=== PATIENT | male | born 1975 | race Caucasian/White ===

== ENCOUNTER 2023-07-23 08:30 | Outpatient (CLI) | payer OTHER ==
--- NOTE | 2023-07-23 16:22 | XRAY Report ---
PROCEDURE: Cervical Spine 2-3V INDICATIONS: THORACIC REGION BACK PAIN TECHNIQUE: 3 view(s) of the cervical spine were acquired. COMPARISON: Cervical spine radiographs also performed today. FINDINGS: Bones: No fractures or dislocations to the C7 level. The lateral masses of C1 appear intact on the odontoid view. Small vertebral body osteophytes. No suspicious bony lesions. Soft tissues: No prevertebral soft tissue swelling. IMPRESSION: Mild degenerative change in the cervical spine. Reviewed by: Javon Means MD on 07/23/2023 4:20 PM PST Approved by: Javon Means MD on 07/23/2023 4:20 PM PST Station ID: [id number]
--- NOTE | 2023-07-23 16:23 | XRAY Report ---
PROCEDURE: Thoracic Spine 3V INDICATIONS: THORACIC REGION BACK PAIN TECHNIQUE: 3 views of the thoracic spine were acquired. COMPARISON: Same day cervical spine radiograph. FINDINGS: Bones: No fractures or dislocations. No suspicious bony lesions. Small vertebral body osteophytes. 12 pairs of ribs are noted, and appear intact where visualized. Soft tissues: No paravertebral stripe thickening. IMPRESSION: Mild degenerative change in the thoracic spine. Reviewed by: Javon Means MD on 07/23/2023 4:21 PM PST Approved by: Javon Means MD on 07/23/2023 4:21 PM PST Station ID: [id number]
== END 2023-07-23 08:45 | disposition home or self-care (01) ==
LOC: DI.N 08:30
PROVIDERS: ATTEND Physician Assistant Medical
DX: M47.814 Spondylosis without myelopathy or radiculopathy, thoracic region (principal); M47.812 Spondylosis without myelopathy or radiculopathy, cervical region

== ENCOUNTER 2023-10-10 08:00 | Outpatient (CLI) | payer OTHER ==
[2023-10-10 18:07] LABS: FECAL OCCULT BLOOD (FIT) POSITIVE (NEGATIVE)
== END 2023-10-10 23:59 | disposition home or self-care (01) ==
LOC: LAB.N 08:00
PROVIDERS: ATTEND Family Medicine
DX: Z12.11 Encounter for screening for malignant neoplasm of colon (principal)
CPT/HCPCS: 82274

== ENCOUNTER 2023-12-27 07:09 | Day surgery (SDC) | payer OTHER ==
[2023-12-27] MEDS: LACTATED RINGERS 1,000 ML IV ONE (07:23)
[2023-12-27 07:43] VITALS: O2SAT 99
[2023-12-27] MEDS ORDERED: LIDOCAINE-MPF 2% 5 ML VIAL ONE (07:49)
[2023-12-27] MEDS ORDERED: PROPOFOL 500 MG/50 ML 500 MG/50 ML VIAL ONE (07:49)
--- NOTE | 2023-12-27 08:24 | ANESTHESIA ---
Pre-Anesthesia VS, & Labs - Diagnosis screening - Procedure colonoscopy Vital Signs: Temp Pulse Resp BP Pulse Ox O2 Flow Rate 36.5 C 86 14 137/91 H 99 12/27/23 07:31 12/27/23 07:31 12/27/23 07:31 12/27/23 07:31 12/27/23 07:31 Height: 5 ft 9 in Weight (kg): 75.2 kg Body Mass Index: 24.5 BMI Classification: Normal - NPO Last Fluid Intake: o430 Last Food Intake: >8hr Home Medications and Allergies Home Medications: Ambulatory Orders Gabapentin [Neurontin] 100 mg PO 12/26/23 Meloxicam 15 mg PO 12/26/23 methocarbamoL [Methocarbamol] 500 mg PO 12/26/23 Gabapentin [Neurontin] 100 mg PO 12/26/23 Meloxicam 15 mg PO 12/26/23 methocarbamoL [Methocarbamol] 500 mg PO 12/26/23 Allergies/Adverse Reactions: Allergies Allergy/AdvReac Type Severity Reaction Status Date / Time No Known Drug Allergies Allergy Verified 12/26/23 12:43 Anes History & Medical History - Anesthetic History Anesthesia Complications: reports: No previous complications - Medical History Cardiovascular: reports: None Pulmonary: reports: None Gastrointestinal: reports: None Urinary: reports: None Musculoskeletal: reports: Chronic back pain Endocrine/Autoimmune: reports: None Skin: reports: None Smoking Status: Current every day smoker (20 years) Results - EKG Results EKG Comparison: Reviewed EKG Exam General: Alert, Oriented x3 Dental: WNL Mouth Openin Fingerbreadth Neck Mobility: Normal Mallampati classification: II Thyromental Distance: 4-6 cm Plan Anesthesia Type: Total IV Consent for Procedure(s) Verified and Reviewed: Yes Code Status: Attempt Resuscitation ASA classification: 2-Mild systemic disease Is this case an emergency?: No
--- NOTE | 2023-12-27 08:25 | HISTORY & PHYSICAL EXAMINATION ---
Chief Complaint - Chief Complaint Chief Complaint: here for colonoscopy History of Present Illness - History Obtained From Records Reviewed: yes History obtained from: pt Exam Limitations: none - History of Present Illness HPI Comment/Other: positive fit. no gi symptoms. fhx colon ca in aunt and grandfather. no first degree relatives History - Past Medical History Cardiovascular: reports: None Respiratory: reports: None Endocrine/Autoimmune: reports: None GI: reports: None : reports: None HEENT: reports: None Psych: reports: None Musculoskeletal: reports: Chronic back pain Derm: reports: None MRSA Hx?: No Meds/Allgy - Home Medications Home Medications: Ambulatory Orders Medication Instructions Recorded Confirmed Gabapentin [Neurontin] 100 mg PO HS 12/26/23 12/26/23 Meloxicam 15 mg PO HS 12/26/23 12/26/23 methocarbamoL [Methocarbamol] 500 mg PO HS 12/26/23 12/26/23 - Allergies Allergies/Adverse Reactions: Allergies Allergy/AdvReac Type Severity Reaction Status Date / Time No Known Drug Allergies Allergy Verified 12/26/23 12:43 Review of Systems - Other Findings Other Findings: 10 pt ros as above otherwise unremarkable Exam - Vital Signs Reviewed Vital Signs: Yes Vital Signs: Vital Signs x48h Temp Pulse Resp BP Pulse Ox 12/27/23 07:31 36.5 C 86 14 137/91 H 99 - Physical Exam General Appearance: positive: No acute distress, Alert Eyes Bilateral: positive: PERRL, EOMI ENT: positive: No signs of dehydration Neck: positive: No JVD, Trachea midline Respiratory: positive: No respiratory distress Cardiovascular: positive: Regular rate & rhythm Abdomen: positive: No distention Neurologic/Psychiatric: positive: Oriented x3 Conclusion/Plan - Problem List (1) Colon cancer screening Conclusion/Plan: positve fit. plan colonoscopy. parq held and consent obtained
[2023-12-27] MEDS ORDERED: PROPOFOL 200 MG/20 ML VIAL IVP ONE (09:02)
[2023-12-27] MEDS: LACTATED RINGERS 200 ML IV ONE (09:10)
[2023-12-27 09:44] VITALS: BP 130/99
--- NOTE | 2023-12-27 10:42 | ANESTHESIA POST OP EVALUATION ---
Anesthesia Post Eval - Post Anesthesia Eval Vitals: Last Vital Signs Temp 36.2 C L 12/27/23 09:25 Pulse 77 12/27/23 09:25 Resp 15 12/27/23 09:25 BP 130/99 H 12/27/23 09:25 Pulse Ox 99 12/27/23 09:25 O2 Flow Rate CV Function Including HR & BP: Stable Pain Control: Satisfactory Nausea & Vomiting: Negative Mental Status: Baseline Respiratory Status: Airway Patent Hydration Status: Satisfactory Anesthesia Complications: None
== END 2023-12-27 07:10 | disposition home or self-care (01) ==
LOC: SDS 07:09
PROVIDERS: ATTEND Surgery
PROC: 0DBP8ZZ Excision of Rectum, Via Natural or Artificial Opening Endoscopic (ICD-10-PCS; 2023-12-27)
PROC: 0DBH8ZZ Excision of Cecum, Via Natural or Artificial Opening Endoscopic (ICD-10-PCS; principal; 2023-12-27 08:30)
DX: R19.5 Other fecal abnormalities (principal); D12.0 Benign neoplasm of cecum; K62.1 Rectal polyp; F17.200 Nicotine dependence, unspecified, uncomplicated
CPT/HCPCS: 45380; 45385; J7120